=== PATIENT | male | born 1975 | race Two or more races ===

== ENCOUNTER 2017-02-09 12:29 | Emergency (ER) | payer BC ==
[~2017-02-09] VITALS: Ht 177.8 cm; Wt 115.7 kg
[2017-02-09] MEDS ORDERED: ASPIRIN 81 MG CHEW TABLET PO ONE (13:00)
--- NOTE | 2017-02-09 13:31 | REP ---
Clinical: Chest pain . Comparison: 01/28/2010 . Technique: PA and lateral. Findings: The mediastinum and cardiac silhouette are normal. The lung ross are clear and without acute consolidation, effusion, or pneumothorax. The skeletal structures are intact and normal. Impression: 1. No acute cardiopulmonary process. Signed by Hao Dickerson MD 02/09/2017 01:23 P
[2017-02-09 14:00] LABS: ALBUMIN/GLOBULIN RATIO 1.25 (1.00-1.93); ALKALINE PHOSPHATASE 45 U/L (45-117); ALT/SGPT 50 U/L (12-78); ANION GAP 5 MEQ/L (8-16); AST/SGOT 16 U/L (15-37); BILIRUBIN,DIRECT < 0.1 MG/DL (0.0-0.2); BILIRUBIN,TOTAL 0.5 MG/DL (0.2-1.0); BLOOD UREA NITROGEN 15 MG/DL (7-18); CALCIUM LEVEL 9.8 MG/DL (8.5-10.1); CARBON DIOXIDE LEVEL 29 MEQ/L (21-32); CHLORIDE LEVEL 107 MEQ/L (98-107); CREATININE FOR GFR 0.93 MG/DL (0.70-1.30); GLOMERULAR FILTRATION RATE > 60.0 (>60); GLUCOSE, FASTING 87 MG/DL (70-105); POTASSIUM SERUM 3.9 MEQ/L (3.5-5.1); SODIUM LEVEL 141 MEQ/L (136-145); TOTAL PROTEIN 7.2 GM/DL (6.4-8.2)
[2017-02-09 14:03] LABS: BASO % 0.5 % (0.0-1.0); EOS # 0.2 K/mm3 (0.0-0.50); EOS % 2.5 % (0.0-3.0); LARGE UNSTAINED CELL # 0.2 K/mm3 (0.0-0.4); LARGE UNSTAINED CELL % 2.8 % (0.0-4.0); LYMPH # 2.3 K/mm3 (1.5-4.5); LYMPH % 32.6 % (24.0-44.0); MEAN CORPUSCULAR HEMOGLOBIN 31.5 pg (27.0-33.0); MEAN CORPUSCULAR HGB CONC 35.6 g/dl (32.0-36.5); MEAN CORPUSCULAR VOLUME 88.5 fl (80.0-96.0); MONO # 0.4 K/mm3 (0.0-0.8); MONO % 5.7 % (0.0-5.0); NEUTROPHILS # 3.9 K/mm3 (1.8-7.7); NEUTROPHILS % 55.9 % (36.0-66.0); PLATELET COUNT, AUTOMATED 151 k/mm3 (150-450); RED CELL DISTRIBUTION WIDTH 12.5 % (11.5-14.5); WHITE BLOOD COUNT 6.9 K/mm3 (4.0-10.0)
[2017-02-09 17:14] VITALS: BP 123/70
--- NOTE | 2017-02-09 22:08 | ECGEPIP ---
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
--- NOTE | 2017-02-10 07:01 | ECGEPIP ---
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
== END 2017-02-09 17:23 | disposition home or self-care (01) ==
LOC: M ED 13:27
DX: R07.89 Other chest pain (principal); Z87.891 Personal history of nicotine dependence; Z82.49 Family history of ischemic heart disease and other diseases of the circulatory system; Z91.030 Bee allergy status

== ENCOUNTER → 2017-03-04 | Outpatient (CLI) | payer BC | LOC: M ADAMS 08:32 | PROVIDERS: ATTEND Family Medicine | DX: E66.9 Obesity, unspecified (principal); Z68.39 Body mass index [BMI] 39.0-39.9, adult; K21.0 Gastro-esophageal reflux disease with esophagitis ==

== ENCOUNTER 2025-07-01 07:54 | Emergency (ER) | payer BC ==
[~2025-07-01] VITALS: Ht 177.8 cm; Wt 165.0 kg
[2025-07-01] MEDS ORDERED: FLON1SPR NARES (08:24)
[2025-07-01] MEDS ORDERED: ALLE180T33 PO (08:24)
[2025-07-01] MEDS ORDERED: OMEP40CA5 (08:24)
[2025-07-01] MEDS ORDERED: ZOLO100T (08:24)
[2025-07-01] MEDS: KETOROLAC 60 MG/2 ML VIAL IM ONE (10:41)
[2025-07-01 11:27] VITALS: BP 149/75; TEMP 97.1; O2SAT 97
[2025-07-01] MEDS ORDERED: KETO-204 PO (11:52)
[2025-07-01] MEDS ORDERED: METH-1165 PO (11:52)
[2025-07-01] MEDS ORDERED: MEDR4PAK PO (11:52)
== END 2025-07-01 12:02 | disposition home or self-care (01) ==
LOC: M ED 07:54
DX: M54.42 Lumbago with sciatica, left side (principal); K21.9 Gastro-esophageal reflux disease without esophagitis; Z91.030 Bee allergy status; Z91.013 Allergy to seafood; Z79.899 Other long term (current) drug therapy
CPT/HCPCS: 72110; 96372; 99283; J1885